=== PATIENT | female | born 1990 | race Two or more races ===

== ENCOUNTER 2024-07-11 03:28 | Inpatient (IN) | payer BC, SELFPAY ==
[2024-07-11] VITALS (79 sets, daily range): BP systolic 0–141; BP diastolic 0–91; PULSE 65–104; RESP 16–18; TEMP 36.4–37; O2SAT 90–100; BMI 32.7
[2024-07-11 04:38] LABS: Basophils % (Auto) 1 % (0-2.5); Eosinophils # (Auto) 0.2 Thou/mm3 (0.0-0.5); Eosinophils % (Auto) 3 % (0-10); Hematocrit 37.4 % (36.0-46.0); Immature Granulocytes % (Auto) 0 % (0-0); Immature Granulocytes Auto 0.02 Thou/mm3 (0.00-0.00); Lymphocytes # (Auto) 2.9 Thou/mm3 (1.0-4.8); Lymphocytes % (Auto) 33 % (10-50); Mean Corpuscular HGB Conc 34.8 g/dl (31.0-37.0); Mean Corpuscular Hemoglobin 28.8 pg (25.0-35.0); Mean Corpuscular Volume 83 fL (80-100); Monocytes # (Auto) 0.4 Thou/mm3 (0.0-0.8); Monocytes % (Auto) 5 % (0-12); Neutrophils # (Auto) 5.1 Thou/mm3 (1.8-7.7); Neutrophils % (Auto) 58 % (37-80); Nucleated Red Blood Cell % 0 /100 WBC (0); Platelet Count 235 Thou/mm3 (140-440); RDW Standard Deviation 39.8 fL (36.4-46.3); Red Blood Count 4.52 Miln/mm3 (4.00-5.20); White Blood Count 8.7 Thou/mm3 (3.6-11.0)
--- NOTE | 2024-07-11 04:46 | XR_ITS ---
Examination: age Limited Technique: Limited transabdominal sonographic images pelvis Exam date and time: July 11, 2024 0509 hrs. Indications: Labor induction today, unknown presentation Findings: presentation Vertex Cardiac motion 136 BPM Impression: presentation Vertex
[2024-07-11 05:20] LABS: Syphilis Nonreactive (Nonreactive)
--- NOTE | 2024-07-11 06:31 | PRELIM_ITS ---
Limited obstetric ultrasound. July 11, 2024 0509 hours Clinical history: determine presentation Comparison:No prior study is available for comparison. Findings: There is a gravid uterus with a live fetus in cephalicpresentation of gestational age 40weeks and 6days ( according to last menstrual period ). cardiac activity is present at a heart rate of 136beats per minute. Impression: Gravid uterus with a single live fetus in cephalicpresentation. Report Electronically Signed By: Kaylie Drew 07/11/2024 6:31:13 AM [EST]
[2024-07-11] MEDS: MISOPROSTOL 50 mCg TABLET PO ×4 (07:40→21:14)
--- NOTE | 2024-07-11 17:09 | ESHP_ITS ---
Documentation for date of: 07/11/24 OB Labor/Induct. HPI History of Present Illness Chief complaint: Induction of labor for postdates : 2 Para: 1 Term pregnancies: 1 pregnancies: 0 Living children: 1 History of Abortions: Spontaneous and Elective: 0 History of Vaginal deliveries: 1 History of sections: No History of : No Date of last menstrual period: 09/13/23 REGGIE: 07/05/24 Gestational Age (weeks): 40 Gestational Age (days): 6 Gestational age based on last menstrual period: 43 Indication for induction: post dates History of present illness: Patient is a 34-year-old -0-0-1 all , [facility] for scheduled induction of labor at 40-6/7 weeks for postdates. All care is up-to-date on the chart she is group B strep negative. History of Present Dating criteria: LMP confirmed by 1st trimester US Adequate Care: Yes Ultrasounds: normal mid trimester US Obstetrical complications: none Medical complications: none Labs Maternal Blood Type: A Pos Labs: Positive: Rubella Titre and Negative: RPR, Hepatitis B, HIV, Chlamydia, Gonorrhea and Group Beta Strep Review of Systems Review of Systems Systems Reviewed: All systems reviewed, normal except as documented Narrative Review of Systems: On admission patient reported good movement she denied leaking fluids or regular contractions. She denied vaginal bleeding. Past Medical History Surgical History SURGICAL: Negative Section Past Medical History Comments PMH COMMENT: Patient had a history of a vaginal delivery in 2017 at [facility] in [place]. Her son weighed 7 pounds 8 ounces at . She was induced at 41 weeks for postdates. She did have an epidural. Meds Home Medications and Allergies Allergies Allergy/AdvReac Type Severity Reaction Status Date / Time No Known Allergies Allergy Verified 07/11/24 07:37 OB Exam Physical Exam Vital signs: Temp Pulse Resp BP 97.6 F 67 18 130/91 H 07/11/24 16:20 07/11/24 16:53 07/11/24 16:20 07/11/24 16:53 Routine Abdominal Exam Abdominal: Present soft Comments: Fundus firm EFW by Jim's approximately 8-1/2 to 9 pounds Detailed Labor and Delivery Exam Dilation (cm): 1-2 Effacement (%): 70 Cervix position: posterior station: -3 Consistency: medium Presentation: Vertex Membranes: intact Baseline heart rate: 140 monitor accelerations: 15x15 monitor decelerations: None terminal make up operator variability: Moderate (11-25) Contraction frequency (min): Minimal contractions on presentation Contraction intensity: Mild OB Results Labs 07/11/24 04:00 Labs: Short CBC 07/11/24 Range/Units 04:00 WBC 8.7 (3.6-11.0) Thou/mm3 Hgb 13.0 (12.0-16.0) g/dL Hct 37.4 (36.0-46.0) % Plt Count 235 (140-440) Thou/mm3 OB Assessment & Plan Assessment and Plan (1) Post-dates : Status: Acute Assessment and plan: Admit patient. P.o. Cytotec per protocol. Patient is allowed to ambulate and I will order a general diet until she kicks into active labor. Patient may want an epidural when in active labor. (1) Post-dates Qualifiers: Post-term type: 40-42 weeks gestation Qualified Code(s): O48.0 - Post-term
--- NOTE | 2024-07-11 17:17 | PD.LDPN ---
Documentation for date of: 07/11/24 OB Labor Progress Note Pain Control Pain control: tolerating well Comments: Contractions irregular after 50 mcg of Cytotec x 2 Pelvic Exam Dilation (cm): 3 Effacement (%): 70 station: -3 Amniotic membrane status: Ruptured Comments: AROMed patient during exam at 5 PM. Clear fluid. IUPC placed. Contractions Monitor mode: External Contraction frequency: Irregular contractions Contraction intensity: Mild Status status: Category l Assessment and Plan Assessment: induction ongoing Comments: Ordered more 50 ug dose of oral Cytotec as patient is very posterior and 3 cm. Patient is checked on a bedpan.
[2024-07-11] MEDS: RINGERS LACTATED 1000 ML 1,000 ML 100 ML IV (22:40)
[2024-07-12] VITALS (127 sets, daily range): BP systolic 0–142; BP diastolic 0–93; PULSE 75–104; RESP 14–18; TEMP 36.6–37.2; O2SAT 77–100
[2024-07-12] MEDS: RINGERS LACTATED 1000 ML 1,000 ML 100 ML IV ×2 (01:05→06:32)
--- NOTE | 2024-07-12 06:21 | PD.LDDELS ---
Data (Funes) Data Hx Section: No Maternal Blood Type: A Pos Rubella Titre: Positive RPR: Non-reactive Labs: Negative: RPR, Hepatitis B, HIV, Chlamydia, Gonorrhea and Group Beta Strep : 2 Para: 1 Term: 1 : 0 Livin : 0 Delivery Data (Funes) Labor Data Stimulated/Augmented: Yes Induction: Yes Method: Cytotec ( 4 doses 50 mcg each given orally orally) ROM Date: 07/11/24 ROM Time: 16:49 Rupture Type: AROM Amniotic Fluid: Clear Delivery Data EDC: 07/05/24 EDC calculated by:: LMP/early US confirmation Labor Onset Stage 1 Date: 07/12/24 Labor Onset Stage 1 Time: 23:16 Labor Onset Stage 2 Date: 07/12/24 Labor Onset Stage 2 Time: 04:18 Delivery Date: 07/12/24 Delivery Time: 05:44 Gestational age (weeks): 41 Gestational age (days): 0 Placenta Delivery Date: 07/12/24 Placenta Delivery Time: 05:39 Length stage 2 (hours): 1 Length stage 2 (minutes): 6 Length stage 3 (minutes): 5 Delivered by: Erika Porter Delivery nurse: Lu [employer] Biller at delivery: No Support person(s) at delivery: Father the baby Other staff at delivery: MEDICAL LIBRARY ASSISTANT (for epidural placement but not at delivery) Other staff at delivery: Nursery Nurse Other staff at delivery: 2nd Nurse Other staff at delivery: RT Other staff at delivery: Manjeet Blackwell (placed epidural) Other staff at delivery: Tia Urbano Other staff at delivery: FAISAL SEE Other staff at delivery: VENTURA Delivery Method Delivery: Vaginal Delivery Type: Spontaneous Presentation: Vertex Position: OT Anesthesia Type Primary Anesthesia: Epidural Placenta Placenta Delivery: Spontaneous Placenta Cultures Obtained: No Placenta Sent for Examination: No Cord Sample: Cord Blood Obtained Episiotomy Episiotomy: None EBL Estimated blood loss (ml): 100 Umbilical Cord Umbilical Vessels: 3 Nuchal Cord: None Body Cord: x1 (Foot cord around both feet x 1) Additional Procedures Patient is a 34-year-old -0-0-1 status post vaginal delivery in 2017. [facility] She was being induced for post dates. When she was admitted, she was 40-6/7 weeks. She was signed out to tn at 7:00 in the morning on 07/11/24. She was 1 to 2 cm dilated with a very posterior cervix. 50 mcg of Cytotec were placed orally x 2 doses. I performed an AROM on the patient and placed an intrauterine pressure catheter at 1649. She had labor epidural placed. Patient had a another oral dose of Cytotec given. She went on to progress to complete without the aid of Pitocin augmentation by 418 in the morning on 07/12/2024. She began pushing 10 minutes later when she felt pressure. She pushed an hour and 6 minutes with me at bedside the entire time delivering at 5;34 in the morning. The placenta delivered 5 minutes later at 5:39 in the morning. Findings: liveborn male in the OT presentation with no nuchal cord and with thick meconium .Apgars were 8 and 9 weight was 3455 g or 7 pounds 10 ounces.The placenta was complete ,spontaneous ,grossly normal, delivering 5 minutes after the baby. The patient delivered over an intact perineum. Complications were none, condition both mom and were in stable condition in the delivery room. Of note the baby's head circumference was 38 cm. Complications Complications: None Page Data (Funes) Page Data Gender: Male Weight Grams: 3455 1 Minute Total: 8 5 Minute Total: 9
[2024-07-12] MEDS: BENZO/LANO/ALOE (Dermoplast) 60 GM CAN 1 SPRAY TOP (06:29)
[2024-07-12] MEDS: OXYTOCIN in NS 20 units 20 UNIT/1,000 ML BAG 125 UNIT IV (06:30)
[2024-07-12] MEDS: IBUPROFEN TAB 400 MG TABLET 800 MG PO ×2 (07:16→15:48)
--- NOTE | 2024-07-12 09:15 | PD.LDPPPRG ---
Subjective Subjective Interval history: Delivery type: Patient doing well this morning. No acute complaints. Ambulating, tolerating p.o. and voiding without difficulty. HTN/Pre-Eclampsia screen: No chest pain, shortness of breath, headache, visual changes, epigastric or right upper quadrant pain. Breast-feeding, lochia diminishing. Bowel: Flatus+/ BM+ Exam Vital Signs Temp Pulse Resp BP Pulse Ox 98.9 F 76 18 123/83 96 07/12/24 06:40 07/12/24 07:45 07/12/24 06:40 07/12/24 07:45 07/12/24 07:06 Constitutional Constitutional: no acute distress Routine HEENT Exam Head: Present normocephalic and atraumatic Eye: Present EOMI and PERRL ENT: Present mucous membranes moist Routine Neck Exam Neck: Present supple and trachea midline Routine Respiratory Exam Respiratory: Present chest non-tender, lungs clear, normal breath sounds and no resp distress Routine Cardiovascular Exam Cardiovascular: Present RRR Routine Abdominal Exam Abdominal: Present soft and normoactive bowel sounds Routine Extremities Exam Extremities: Present full ROM Routine Skin Exam Skin: Present intact, dry and warm Routine Neurological Exam Neurological: Present alert, oriented X3 and CN II-XII intact Routine Psychiatric Exam Psychiatric: Present normal affect and normal thought process Objective Labs 07/11/24 04:00 Assessment & Plan Problem List (1) Post-dates : Status: Acute (2) Vaginal delivery: Status: Acute Assessment and plan: 1. Continue routine /post-op care 2. Labs reviewed, cbc appropriate 3. Remove dressing/[place] 4. Encourage to ambulate, shower 5. Encourage PO intake, breast feeding Time Spent With Patient Time: Total time spent is greater than 50% in coordination of care (as documented) at patient's floor/unit and/or counseling patient:
--- NOTE | 2024-07-12 09:16 | PD.LDDS ---
DS: Providers Provider Date of admission: 07/11/24 03:28 Primary care physician: Danny Dawn MD Admitting Provider: Erika Porter MD ([facility]) Attending Provider on Admission: Hima Dupree MD Consults: 07/12/24 06:31 Referral Routine Comment: Attending Provider on DC: Hima Dupree MD Discharging Provider: Hima Dupree MD DS: Diagnosis Discharge Diagnosis (1) Vaginal delivery: Status: Acute (2) Post-dates : Status: Acute Problem List Completed Was Problem List Reviewed/Reconciled?: Yes Summary/Hosp Course Brief History: Patient is a 34-year-old -0-0-1 all , care uncomplicated [facility] presented for scheduled induction of labor at 40-6/7 weeks for postdates. All care is up-to-date on the chart she is group B strep negative. Time Spent with Patient Time attestation: Total time spent providing and/or coordinating discharge services: Exam Vital Signs Temp Pulse Resp BP Pulse Ox 98.9 F 76 18 123/83 96 07/12/24 06:40 07/12/24 07:45 07/12/24 06:40 07/12/24 07:45 07/12/24 07:06 Discharge Plan Plan Patient Disposition: HOME (Self Care) Patient condition on transfer: Stable Prescriptions/Referrals Referrals: Danny Dawn MD [Primary Care Provider] - Sydnie Newby MD [Physician] - Patient/Caregiver Discharge Instructions Meds to Beds: Yes Discharge Activity: activity as tolerated Education Materials: After a Vaginal , After Delivery Concerns, Breast Care After , Incision Care After Vaginal , Nutrition While , Understanding Depression, : Caring for Yourself, Feel Healthy After Print Language: Kiswahili Stand Alone Forms: Daria Award Info., Patient Portal Info Letter Discharge Order Discharge Orders: Discharge (Routine); Ordered 07/12/24 Ordered By: Hima Dupree Planned Discharge Date 07/12/24 (2) Post-dates Qualifiers: Post-term type: 40-42 weeks gestation Qualified Code(s): O48.0 - Post-term
[2024-07-12 12:33] LABS: Basophils # (Auto) 0.1 Thou/mm3 (0.0-0.2); Basophils % (Auto) 0 % (0-2.5); Eosinophils % (Auto) 0 % (0-10); Hematocrit 33.5 % (36.0-46.0); Hemoglobin 11.8 g/dL (12.0-16.0); Immature Granulocytes % (Auto) 1 % (0-0); Lymphocytes # (Auto) 1.9 Thou/mm3 (1.0-4.8); Lymphocytes % (Auto) 9 % (10-50); Mean Corpuscular HGB Conc 35.2 g/dl (31.0-37.0); Mean Corpuscular Hemoglobin 29.3 pg (25.0-35.0); Mean Corpuscular Volume 83 fL (80-100); Monocytes # (Auto) 0.9 Thou/mm3 (0.0-0.8); Monocytes % (Auto) 4 % (0-12); Neutrophils # (Auto) 18.4 Thou/mm3 (1.8-7.7); Neutrophils % (Auto) 86 % (37-80); Nucleated Red Blood Cell % 0 /100 WBC (0); Platelet Count 194 Thou/mm3 (140-440); RDW Standard Deviation 40.3 fL (36.4-46.3); Red Blood Count 4.03 Miln/mm3 (4.00-5.20); White Blood Count 21.3 Thou/mm3 (3.6-11.0)
[2024-07-13 01:05] VITALS: BP 124/82; PULSE 82; RESP 19; TEMP 36.4; O2SAT 97
[2024-07-13 04:55] VITALS: BP 124/83; PULSE 73; RESP 17; TEMP 36.5; O2SAT 98
[2024-07-13 06:24] LABS: Basophils # (Auto) 0.1 Thou/mm3 (0.0-0.2); Basophils % (Auto) 0 % (0-2.5); Eosinophils # (Auto) 0.2 Thou/mm3 (0.0-0.5); Eosinophils % (Auto) 1 % (0-10); Hematocrit 34.5 % (36.0-46.0); Hemoglobin 11.7 g/dL (12.0-16.0); Immature Granulocytes % (Auto) 0 % (0-0); Immature Granulocytes Auto 0.07 Thou/mm3 (0.00-0.00); Lymphocytes # (Auto) 4.1 Thou/mm3 (1.0-4.8); Lymphocytes % (Auto) 25 % (10-50); Mean Corpuscular HGB Conc 33.9 g/dl (31.0-37.0); Mean Corpuscular Hemoglobin 28.7 pg (25.0-35.0); Mean Corpuscular Volume 85 fL (80-100); Monocytes # (Auto) 0.8 Thou/mm3 (0.0-0.8); Monocytes % (Auto) 5 % (0-12); Neutrophils # (Auto) 11.5 Thou/mm3 (1.8-7.7); Neutrophils % (Auto) 69 % (37-80); Nucleated Red Blood Cell % 0 /100 WBC (0); Platelet Count 206 Thou/mm3 (140-440); RDW Standard Deviation 42.5 fL (36.4-46.3); Red Blood Count 4.08 Miln/mm3 (4.00-5.20); White Blood Count 16.6 Thou/mm3 (3.6-11.0)
[2024-07-13 07:40] VITALS: BP 124/84; PULSE 73; RESP 16; TEMP 36.6; O2SAT 98
--- NOTE | 2024-07-13 07:46 | PC.CC ---
Patient is a 34 year-old female who presents to the hospital to deliver her son, Jimena. ASW received a consult for history of anxiety. ASWKeyanna made face to face contact with patient introduced self, role, and reason for visit. At bedside was patient's /Father of Baby (FOB) Vitaliy [place] whom patient gave verbal consent to remain in the room during initial assessment. ASW discussed limits of confidentiality. Patient presents as alert and oriented to self, location, and situation. Patient made appropriate eye contact and engaged in assessment. Patient reports she struggled with anxiety 8 years ago when she delivered her first child. Patient reports she is aware of signs and symptoms should this occur again, Patient knows how to access service. Patient is not connected to outpatient mental health services. Mother denied prior CWS involvement and domestic violence. Per mother, she has all the supplies she needs for her new born son. Her support system when she is d/c will be her , and mother, Elizabeth. Patient plans on exclusively her baby. SW provided psychoeducation regarding baby blues and Post- Depression, as well as counseling groups at [facility]. SW provided community resources: Warm Line and Crisis Line. ASW provided update to bedside NUZHAT Reeves.
--- NOTE | 2024-07-13 09:15 | PD.LDPPPRG ---
Subjective Subjective Interval history: Delivery type: Patient doing well this morning. No acute complaints. Ambulating, tolerating p.o. and voiding without difficulty. HTN/Pre-Eclampsia screen: No chest pain, shortness of breath, headache, visual changes, epigastric or right upper quadrant pain. Breast-feeding, lochia diminishing. Bowel: Flatus+/ BM+ Exam Vital Signs Temp Pulse Resp BP Pulse Ox O2 Del Method 97.8 F 73 16 124/84 98 Room Air 07/13/24 07:40 07/13/24 07:40 07/13/24 07:40 07/13/24 07:40 07/13/24 07:40 07/13/24 07:40 Constitutional Constitutional: no acute distress Routine HEENT Exam Head: Present normocephalic and atraumatic Eye: Present EOMI and PERRL ENT: Present mucous membranes moist Routine Neck Exam Neck: Present supple and trachea midline Routine Respiratory Exam Respiratory: Present chest non-tender, lungs clear, normal breath sounds and no resp distress Routine Cardiovascular Exam Cardiovascular: Present RRR Routine Abdominal Exam Abdominal: Present soft and normoactive bowel sounds Routine Extremities Exam Extremities: Present full ROM Routine Skin Exam Skin: Present intact, dry and warm Routine Neurological Exam Neurological: Present alert, oriented X3 and CN II-XII intact Routine Psychiatric Exam Psychiatric: Present normal affect and normal thought process Objective Labs 07/13/24 05:45 Labs: Laboratory Results - last 24 hr 07/12/24 07/13/24 12:15 05:45 WBC 21.3 H D 16.6 H RBC 4.03 4.08 Hgb 11.8 L 11.7 L Hct 33.5 L 34.5 L MCV 83 85 MCH 29.3 28.7 MCHC 35.2 33.9 RDW Std Deviation 40.3 42.5 Plt Count 194 D 206 Neut % (Auto) 86 H 69 Lymph % (Auto) 9 L 25 Liberty % (Auto) 4 5 Eos % (Auto) 0 1 Baso % (Auto) 0 0 Neut # (Auto) 18.4 H 11.5 H Lymph # (Auto) 1.9 4.1 [place] # (Auto) 0.9 H 0.8 Eos # (Auto) 0.0 0.2 Baso # (Auto) 0.1 0.1 Immature Gran # (Auto) 0.10 H 0.07 H Absolute Nucleated RBC 0.00 0.00 Immature Gran % 1 H 0 Nucleated RBC % 0 0 Assessment & Plan Problem List (1) Vaginal delivery: Status: Acute Assessment and plan: PPD/POD#2 1. Continue routine care 2. Transition to PO meds. 3. Encourage to ambulate/ breast-feed 4. Anticipate discharge home today. (2) Post-dates : Status: Acute Time Spent With Patient Time: Total time spent is greater than 50% in coordination of care (as documented) at patient's floor/unit and/or counseling patient:
--- NOTE | 2024-07-13 09:16 | ESDS_ITS ---
DS: Providers Provider Date of admission: 07/11/24 03:28 Primary care physician: Danny Dawn MD Admitting Provider: Erika Porter MD ([facility]) Attending Provider on Admission: Hima Dupree MD Consults: 07/12/24 06:31 Referral Routine Comment: Attending Provider on DC: Hima Dupree MD Discharging Provider: Hima Dupree MD DS: Diagnosis Discharge Diagnosis (1) Vaginal delivery: Status: Acute (2) Post-dates : Status: Acute Problem List Completed Was Problem List Reviewed/Reconciled?: Yes Summary/Hosp Course Brief History: Patient is a 34-year-old -0-0-1 all , care uncomplicated [facility] presented for scheduled induction of labor at 40-6/7 weeks for postdates. All care is up-to-date on the chart she is group B strep negative. Time Spent with Patient Time attestation: Total time spent providing and/or coordinating discharge services: Exam Vital Signs Temp Pulse Resp BP Pulse Ox O2 Del Method 97.8 F 73 16 124/84 98 Room Air 07/13/24 07:40 07/13/24 07:40 07/13/24 07:40 07/13/24 07:40 07/13/24 07:40 07/13/24 07:40 Discharge Plan Plan Patient Disposition: HOME (Self Care) Patient condition on transfer: Stable Prescriptions/Referrals Prescriptions/Med Rec: New ibuprofen 400 mg Tablet 800 mg PO Q8H PRN (Reason: See Comments) 10 Days Qty: 40 0RF Referrals: Danny Dawn MD [Primary Care Provider] - Sydnie Newby MD [Physician] - Patient/Caregiver Discharge Instructions Meds to Beds: Yes Discharge Activity: activity as tolerated Education Materials: After a Vaginal , After Delivery [place] Concerns, Breast Care After , Incision Care After Vaginal , Nutrition While , Understanding Depression, : Caring for Yourself, Feel Healthy After Print Language: Pashto Stand Alone Forms: Daria Award Info., Patient Portal Info Letter Discharge Order Discharge Orders: Discharge (Routine); Ordered 07/13/24 Ordered By: Hima Dupree Planned Discharge Date 07/13/24 (2) Post-dates Qualifiers: Post-term type: 40-42 weeks gestation Qualified Code(s): O48.0 - Post-term
== END 2024-07-13 13:29 | disposition home or self-care (01) | DRG 807 ==
LOC: S4SX 07-12 06:05 → S4NX 07-12 08:06
PROVIDERS: Student in an Organized Health Care Education/Training Program; Admitting Provider Obstetrics & Gynecology; PCP Family Medicine; Referring Provider Obstetrics & Gynecology; Visit Provider Obstetrics & Gynecology
DX: O48.0 Post-term pregnancy (principal); Z37.0 Single live birth; Z3A.40 40 weeks gestation of pregnancy; O69.82X0 Labor and delivery complicated by other cord entanglement, without compression, not applicable or unspecified
CPT/HCPCS: 36415; 59409; 76815; 85025; 86780; 86850; 86900; 86901; 94762; J2590; J2795; J3010; J7120; A9270